=== PATIENT | female | born 1995 ===

== ENCOUNTER 2017-10-05 23:31 | Emergency (ER) | payer OTHER ==
[2017-10-05 23:40] VITALS: RESP 16; TEMP 97.8
[2017-10-05] MEDS ORDERED: BACITRACIN 500 U/GM OIN TOP ONE ×2 (23:50→23:52)
[2017-10-06 00:02] VITALS: BP 115/71; PULSE 80; O2SAT 99
== END 2017-10-05 23:59 | disposition home or self-care (01) ==
LOC: ED 23:31
DX: S61.212A Laceration without foreign body of right middle finger without damage to nail, initial encounter (principal)
CPT/HCPCS: 99283; A9270-GY